=== PATIENT | male | born 1965 | race Caucasian/White ===

== ENCOUNTER → 2017-03-08 | Day surgery (SDC) | payer OTHER ==
[~2017-03-08] VITALS: Ht 185.4 cm; Wt 90.7 kg
[~2017-03-08] MED LIST: PROPRANOLOL 1010 M1 PO
--- NOTE | ~2017-03-08 | EKG ---
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 : 1965 Requested By: Juan A Stuart Order Number: [id number] MD: Anthony Colon Measurements Intervals [place]dew Rate: 127 P: [place]: QRS: -1 QRSD: 87 T: 28 QT: 330 QTc: 480 Interpretive Statements Atrial fibrillation Ventricular premature complex Aberrant conduction of SV complex(es) Low voltage, extremity and precordial leads Borderline prolonged QT interval No previous ECG available for comparison Electronically Signed On 03-08-2017 15:47:49 CDT by Anthony Colon [email or web address] <ELECTRONICALLY SIGNED> By: Anthony Colon MD 03/08/17 1547 1326 25 Anthony Colon MD /MICHAEL
[2017-03-08 13:12] LABS: HEMATOCRIT 49.2 % (42.0-52.0); HEMOGLOBIN 16.6 gm/dL (14.0-18.0)
[2017-03-08 14:05] VITALS: BP 132/89
== END ==
LOC: TBA 05:21 → OR 05:21 → TBA 05:22 → OR 09:43
PROVIDERS: Surgery
DX: I48.91 Unspecified atrial fibrillation (principal); F41.9 Anxiety disorder, unspecified; F17.210 Nicotine dependence, cigarettes, uncomplicated; I10 Essential (primary) hypertension

== ENCOUNTER 2017-03-18 05:13 | Day surgery (SDC) | payer OTHER ==
[~2017-03-18] VITALS: Ht 185.4 cm; Wt 93.4 kg
--- NOTE | ~2017-03-18 | O ---
[facility] [place] [address] OPERATIVE REPORT Name: MODESTO MONTES Room #: DEP [facility]..#: [id number] Admission: 03/18/17 Attend Phys: Juan A Stuart MD Discharge: 03/18/17 Date of : 63 Report #: [id number] THIS REPORT FOR: //name// CC: Juan A Olson MD DATE OF SERVICE: 03/18/2017 PREOPERATIVE DIAGNOSIS: Left inguinal hernia. POSTOPERATIVE DIAGNOSIS: Left indirect inguinal hernia with a femoral component. Also with a femoral hernia component. PROCEDURE PERFORMED: Laparoscopic repair of left inguinal hernia with left-sided large 3DMax lightweight mesh. ANESTHESIA: General. SURGEON: Juan A Stuart MD COMPLICATIONS: None. ESTIMATED BLOOD LOSS: 5 mL PROCEDURE NOTE: With the patient under general anesthesia, IV antibiotic was administered. Tena catheter was placed. Abdomen was prepped and draped in sterile fashion. Timeout was performed. A 0.25% Marcaine was used to anesthetize the skin adjacent to the umbilicus on the left side. A transverse incision was made. This was about 2 cm in length. Anterior fascia of the rectus sheath was then identified. This was opened. The muscle was spread. The space between the muscle and the posterior fascial sheath was dissected bluntly. This was dissected inferiorly, opening the space partially. Origin balloon trocar was then placed through the same space. CO2 was placed through the balloon trocar. A 5 mm trocar was placed about an inch and a half below the umbilicus. This was placed under visualization into properitoneal space. The dissection was then carried out inferiorly opening the properitoneal space rest of the way. There was some scarring of the fascia anteriorly at the midline area. This may have been from his previous laparoscopic appendectomy scar. Properitoneal space was opened up. There was some pneumoperitoneum that was identified. There was a fat that was going into the abdominal wall medial to the vessel. A second 5-mm trocar was placed. There was no obvious direct defect, but there was a small femoral component with fat pushing into it. Dissection was carried out lateral to the inferior epigastric vessel. A fairly thin hernia sac was identified. Dissection was then carried more anterior to the sac and then freeing the lateral wall. The hernia sac was then found over [facility] [address] [place] [address] OPERATIVE REPORT Name: MODESTO MONTES Room #: DEP [facility] Kang.#: [id number] Admission: 03/18/17 Attend Phys: Juan A Stuart MD Discharge: 03/18/17 Date of : 63 Report #: [id number] the cord structure and then reduced. There was also a pretty good-sized cord lipoma that was brought back into properitoneal space. The hernia sac was completely free from the cord underneath. Cord was skeletonized and isolated. Just medial to the vessel, there was some fat that was protruding into the wall adjacent to the vessel consistent with femoral component. The fat was reduced. Two small lobule of fat was brought back and this that was located in this area was then able to be seen. A large size left 3DMax lightweight mesh was placed. This was folded and then placed through the balloon trocar. This was then opened in the properitoneal space. This was positioned properly covering the internal ring well. Then extending beyond that, this also covered the femoral. Mesh was tacked laterally to the wall with SorbaFix. Light mesh was tacked medial inferiorly to the Cecilio's ligament with SorbaFix and then superiorly to the rectus muscle with SorbaFix. Care was taken to make sure the lipoma and the sac was medial to the mesh material. CO2 was evacuated. The properitoneal space was allowed to collapse down. Trocars then removed. The anterior rectus fascial defect was closed with [id number] 0 Vicryl. Skin was irrigated with saline and then closed with 5-0 PDS. Steri-Strip and Band-Aid applied. The patient tolerated the procedure well. By: [id number] Juan A Stuart MD /aurea
[~2017-03-18 05:13] MED LIST changes: +METOPROLOL SUCC50 MG PO
[2017-03-18 11:38] LABS: HEMATOCRIT 49.4 % (42.0-52.0); HEMOGLOBIN 16.7 gm/dL (14.0-18.0)
[2017-03-18 12:34] VITALS: BP 136/95
[2017-03-18] MEDS ORDERED: NORCO 5-325 TA1 EACH PO (14:28)
[2017-03-18 14:52] VITALS: BP 136/95
== END 2017-03-18 15:41 | disposition home or self-care (01) ==
LOC: OR 05:13 → TBA 05:14 → OR 12:30
PROVIDERS: Surgery
DX: K40.90 Unilateral inguinal hernia, without obstruction or gangrene, not specified as recurrent (principal); K41.90 Unilateral femoral hernia, without obstruction or gangrene, not specified as recurrent; I10 Essential (primary) hypertension; F41.8 Other specified anxiety disorders; Z90.49 Acquired absence of other specified parts of digestive tract; Z98.890 Other specified postprocedural states; Z79.899 Other long term (current) drug therapy
CPT/HCPCS: 50010; 50101; 50411; 50507; 50555; 50848; 53065; 53307; 56525; 56526; 62110; 62900; 70005

== ENCOUNTER → 2017-07-20 | Outpatient (CLI) | payer OTHER ==
[~2017-07-20] MED LIST changes: +FLECAINIDE ACET50 M1 PO; +NORCO 5-325 TA1 EACH PO; +PRADAXA150 MG PO
[2017-07-20 08:03] LABS: HEMATOCRIT 49.2 % (42.0-52.0); HEMOGLOBIN 16.5 gm/dL (14.0-18.0); MCH 28.1 pg (26.0-34.0); MCHC 33.6 g/dL (28.0-37.0); MCV 83.6 fL (80.0-100.0); RBC 5.88 mil/uL (4.50-6.00); RDW 13.5 % (10.5-14.5); WBC 4.7 thou/uL (4.0-11.0)
[2017-07-20 08:12] LABS: CALCIUM 9.1 mg/dL (8.5-10.1); CREATININE 1.1 mg/dL (0.7-1.3); POTASSIUM 4.2 mmol/L (3.5-5.1)
[2017-07-20 08:18] LABS: ALBUMIN 4.1 g/dL (3.4-5.0); TOTAL BILIRUBIN 1.3 mg/dL (<0.1-1.0)
== END ==
LOC: CAT 07:38
PROVIDERS: Internal Medicine Cardiovascular Disease
DX: Z01.818 Encounter for other preprocedural examination (principal); I48.91 Unspecified atrial fibrillation; J98.11 Atelectasis

== ENCOUNTER 2017-07-22 06:35 | Observation (INO) | payer OTHER ==
[~2017-07-22] VITALS: Ht 182.9 cm; Wt 103.0 kg
[2017-07-22] VITALS (12 sets, daily range): BP systolic 103–132; BP diastolic 74–84
--- NOTE | ~2017-07-22 | D ---
[facility] [place] [address] DISCHARGE SUMMARY Name: MODESTO MONTES Room #: 219-P [facility] Carly#: [id number] Admission: 07/22/17 Attend Phys: Anthony Colon MD Discharge: 07/23/17 Date of : 63 Report #: [id number] THIS REPORT FOR: //name// CC: Anthony Colon Kirill Olson DISCHARGE DIAGNOSIS: Atrial fibrillation. PROCEDURES PERFORMED: AFib ablation. HISTORY: The patient is a 51-year-old with history of atrial fibrillation, who is here for an AFib ablation. His ablation was successful with isolation of the 4 pulmonary veins. There were no intraprocedural complications. HOSPITAL COURSE: He was monitored overnight in the CCU. He did well without any issues. He denies any chest pain, shortness of breath. On physical exam, his heart was regular rate and rhythm. No murmurs, rubs, gallops. Lungs were clear to auscultation bilaterally. His right groin showed no bruising or hematoma. On telemetry, he remained in sinus rhythm and vital signs were within normal limits. As such, he was deemed stable for discharge home. Discharge instructions included continuation of his flecainide and Pradaxa therapy. We will see him back in clinic in 3 months. <ELECTRONICALLY SIGNED> By: Anthony Colon MD 08/06/17 1751 0818 8 Anthony Colon MD /aurea
--- NOTE | ~2017-07-22 | P ---
[facility] [place] [address] PROCEDURE REPORT Name: MODESTO MONTES Room #: 219-P [facility] Chasity Carroll#: [id number] Admission: 07/22/17 Attend Phys: Anthony Colon MD Discharge: 07/23/17 Date of : 63 Report #: [id number] THIS REPORT FOR: //name// CC: Anthony Olson PREOPERATIVE DIAGNOSIS: Atrial fibrillation. POSTOPERATIVE DIAGNOSIS: Atrial fibrillation. PROCEDURES PERFORMED: 1. Atrial fibrillation ablation, CPT code 92400. 2. 3D mapping, CPT code 27493. 3. Intracardiac echo, CPT code 54802. HISTORY: The patient is a 51-year-old recently diagnosed with AFib, on antiarrhythmic drugs who has intolerance to these medications and would like to undergo an ablation. ANESTHESIA: The patient underwent general anesthesia with no anesthesia related complications. DESCRIPTION OF PROCEDURE: The patient underwent informed consent. We discussed the details of the procedure including the risks, which include but not limited to bleeding, vascular damage, cardiac perforation, stroke, PA. He understood these risks and is willing to proceed. The patient was brought to the EP laboratory in a fasting and unsedated state and prepped and draped in a sterile fashion. I injected lidocaine to the right groin region, obtained access to the right femoral vein x 3, placing an 8-Canadian, 9-Canadian and 7-Canadian short sheath using the modified Seldinger technique. Next, under fluoroscopy, I placed a decapolar catheter into the coronary sinus with ease and then placed an ice catheter into the right atrium. I created a detailed 3D geometry using a CartoSound. This was merged with his cardiac CT scan. Next, the patient was systemically heparinized and a transseptal was performed using an SL1 sheath and Cleveland needle. His transseptal was straightforward and then I placed a Lasso into the left atrium and obtained measurements of the 4 pulmonary veins. Next, I exchanged the SL1 sheath for the cryo sheath and the cryo balloon was placed into the left atrium. At baseline, the patient was in sinus rhythm with sinus cycle length of 875 milliseconds, NH interval 155 milliseconds, QRS duration of 85 milliseconds and a QT interval of 420 milliseconds. I first performed 2 freezes of the left superior pulmonary vein, each of 4 minutes' duration. The vein remained connected. I then turned my attention to the left inferior pulmonary vein. I performed 2 freezes, each of 4 minutes' duration and this resulted in isolation. When I rechecked the left superior vein, this was now isolated as well. Next, I placed my decapolar catheter up into the subclavian vein and I performed [facility] [address] [place] [address] PROCEDURE REPORT Name: MODESTO MONTES Room #: 219-P [facility] Carroll#: [id number] Admission: 07/22/17 Attend Phys: Anthony Colon MD Discharge: 07/23/17 Date of : 63 Report #: [id number] phrenic nerve pacing. I then turned my attention to the right-sided veins and performed 2 freezes in each of these veins with isolation. All veins were reinterrogated and remained isolated. I used intracardiac ultrasound to verify that there was no pericardial effusion. The catheters were pulled to the right atrium and the patient received systemic protamine and once the ACT was within acceptable range, catheters and sheaths were pulled. Hemostasis obtained and the patient awoke neurologically and hemodynamically intact. Post-ablation, he remained in sinus rhythm with a sinus cycle length of 855 milliseconds, NH interval 160 milliseconds, QRS duration 90 milliseconds and QT interval of 408 milliseconds. CONCLUSIONS: 1. Successful AFib ablation. 2. Isolation of the 4 pulmonary veins. <ELECTRONICALLY SIGNED> By: Anthony Colon MD 09/03/17 1409 1745 0556 Anthony Colon MD /nt
[~2017-07-22 06:35] MED LIST changes: -FLECAINIDE ACET50 M1 PO; -PRADAXA150 MG PO
[2017-07-22] MEDS ORDERED: PRADAXA150 MG PO (07:17)
[2017-07-22] MEDS ORDERED: FLECAINIDE ACET50 M1 PO (07:17)
[2017-07-22 07:24] LABS: ABSOLUTE NEUTROPHILS 4.6 thou/uL (1.4-8.2); BASOPHILS 1.1 % (0.0-2.0); EOSINOPHILS 3.4 % (0.0-3.0); HEMATOCRIT 45.4 % (42.0-52.0); HEMOGLOBIN 15.3 gm/dL (14.0-18.0); LYMPHOCYTES 17.6 % (24.0-44.0); MCHC 33.8 g/dL (28.0-37.0); MCV 82.8 fL (80.0-100.0); MONOCYTES 9.5 % (1.0-8.0); PLATELET COUNT 196 thou/uL (150-400); POLYS 68.4 % (36.0-66.0); RBC 5.48 mil/uL (4.50-6.00); RDW 13.7 % (10.5-14.5); WBC 6.7 thou/uL (4.0-11.0)
[2017-07-22 07:38] LABS: POTASSIUM 3.9 mmol/L (3.5-5.1)
[2017-07-22 07:39] LABS: APTT 24.7 Seconds (24.5-32.8)
[2017-07-22 07:44] LABS: ALBUMIN 3.9 g/dL (3.4-5.0); TOTAL BILIRUBIN 1.2 mg/dL (<0.1-1.0)
[2017-07-23 00:04] VITALS: BP 105/63
[2017-07-23 04:06] VITALS: BP 103/61
[2017-07-23 07:00] VITALS: BP 102/66
[2017-07-23 08:08] VITALS: BP 102/66
[2017-07-23 08:10] VITALS: BP 102/66
[2017-07-23 09:29] VITALS: BP 102/66
== END 2017-07-23 10:08 | disposition home or self-care (01) ==
LOC: CATH 06:35 → 2N 06:54 → CATH 11:26 → ENTRNSPT 07-23 09:47 → EDTRNSPTSTS 07-23 09:50 → 2N 07-23 10:08
PROVIDERS: Internal Medicine Cardiovascular Disease
DX: I48.91 Unspecified atrial fibrillation (principal); F41.9 Anxiety disorder, unspecified; Z82.49 Family history of ischemic heart disease and other diseases of the circulatory system
CPT/HCPCS: 62110; 62900; 65020; 65040; 65043; 70005

== ENCOUNTER 2019-05-24 09:44 | Emergency (ER) | payer OTHER ==
[~2019-05-24] VITALS: Ht 182.9 cm; Wt 102.1 kg
[~2019-05-24 09:44] MED LIST changes: +FLECAINIDE ACET50 M1 PO; +PRADAXA150 MG PO
[2019-05-24] MEDS ORDERED: PERCOCET 5-3251 EACH PO (09:54)
[2019-05-24] MEDS ORDERED: SENNA-DOCUSATE1 EAC1 PO (12:37)
[2019-05-24] MEDS ORDERED: ROXICODONE5 M2 PO (12:37)
[2019-05-24 12:52] VITALS: BP 131/91
== END 2019-05-24 12:52 | disposition home or self-care (01) ==
LOC: ER 09:44
DX: M51.26 Other intervertebral disc displacement, lumbar region (principal); M54.41 Lumbago with sciatica, right side; I10 Essential (primary) hypertension; I48.91 Unspecified atrial fibrillation; F41.9 Anxiety disorder, unspecified; Z90.49 Acquired absence of other specified parts of digestive tract

== ENCOUNTER → 2020-10-22 | Outpatient (CLI) | payer OTHER ==
[~2020-10-22] MED LIST changes: +PERCOCET 5-3251 EACH PO; +ROXICODONE5 M2 PO; +SENNA-DOCUSATE1 EAC1 PO
== END ==
LOC: SJCVCIMAG 09:34
PROVIDERS: ATTEND Internal Medicine Cardiovascular Disease
DX: I10 Essential (primary) hypertension (principal); I48.91 Unspecified atrial fibrillation; Z86.711 Personal history of pulmonary embolism